=== PATIENT | female | born 1945 | race Caucasian/White ===

== ENCOUNTER → 2017-05-24 09:16 | Outpatient (CLI) | payer MEDICARE, OTHER, MEDICAID, SELFPAY ==
--- NOTE | 2017-05-24 09:30 | RAD_ITS ---
XR Chest 2 Views INDICATION: cough COMPARISON: January 01, 2015 TECHNIQUE: PA and lateral chest x-ray FINDINGS: There are streak like in patchy opacity seen at the right lung base, obscuring the right cardiac border, but also extending posteriorly on the lateral view. The left lung appears clear. The osseous structures are grossly unremarkable. RAD/Chest PA and Lateral IMPRESSION: Findings concerning for right basilar developing infiltrate in the appropriate clinical setting. Follow-up to resolution is recommended. at 1808 Reported and signed by: Barbara Ram MD Electronically Signed: Barbara Ram MD at 17:06 EST Tel , Service support ,
== END ==
PROVIDERS: Family Provider Family Medicine; PCP Family Medicine; Visit Provider Internal Medicine Critical Care Medicine
DX: J44.9 Chronic obstructive pulmonary disease, unspecified (principal); R05 Cough
CPT/HCPCS: 71046; 87633

== ENCOUNTER → 2017-10-05 08:03 | Outpatient (CLI) | payer MEDICARE, OTHER, MEDICAID, SELFPAY ==
--- NOTE | 2017-10-05 10:57 | PFT ---
INTRODUCTION: The patient is a 72-year-old female that presents for pulmonary function testing secondary to a diagnosis of COPD. Respiratory therapy reports good patient effort. Patient was unable to do body plethysmography due to being wheelchair bound. Nitrogen washout was attempted for lung volume measurements. However, after 8 minutes, the patient was unable to washout. Bronchodilators were used during testing. INTERPRETATION: Forced expiration spirometry demonstrates no evidence of a large airways obstructive ventilatory defect. There was no significant response to aerosolized bronchodilators, based upon strict ATS criteria. Spirograms are of good quality and plateau gradually. Lung volumes were measured by determining the functional residual capacity in determining the lung divisions by a vital capacity maneuver (Nitrogen Washout). It should be noted that lung volumes may be underestimated by this technique in the setting of an obstructive ventilatory defect. Unfortunately, after a full 8 minutes, the patient was unable to wash out, making her lung volumes uninterpretable. Diffusing capacity by single breath CO is severely reduced at 34% of predicted. IMPRESSION: The patient spirometry indicated no evidence of an obstructive ventilatory impairment. However, the FVC was reduced, indicating a possible restrictive ventilatory defect. Attempts to obtain lung volumes by nitrogen washout was not successful. Therefore, a restrictive impairment cannot be confirmed. Nevertheless, the patient's diffusing capacity was significantly reduced, which can be seen with underlying pulmonary vascular disorder such as pulmonary hypertension.
== END ==
PROVIDERS: Family Provider Family Medicine; PCP Family Medicine; Visit Provider Nurse Practitioner Acute Care
DX: J44.9 Chronic obstructive pulmonary disease, unspecified (principal)
CPT/HCPCS: 94060; 94727; 94729

== ENCOUNTER → 2017-10-18 15:20 | Outpatient (CLI) | payer MEDICARE, OTHER, MEDICAID, SELFPAY ==
--- NOTE | 2017-10-18 15:30 | RAD_ITS ---
STUDY: X-RAY - THORACIC SPINE REASON FOR EXAM: Female, 72 years old. Back pain TECHNIQUE: 3 view(s) of the thoracic spine were obtained. COMPARISON: None. FINDINGS: Normal kyphosis of the thoracic spine. There is no substantial scoliosis. Normal thoracic vertebrae and endplates. Normal disc space heights. The soft tissue structures are unremarkable. RAD/Thoracic Spine 2 Views IMPRESSION: Normal x-ray examination of the thoracic spine. Electronically Signed: Dany Ramos MD at 22:17 EDT , Service support ,
== END ==
PROVIDERS: Family Provider Family Medicine; PCP Family Medicine; Visit Provider Nurse Practitioner Adult Health
DX: M54.9 Dorsalgia, unspecified (principal)
CPT/HCPCS: 72070

== ENCOUNTER 2021-07-31 21:52 | Emergency (ER) | payer MEDICARE, MEDICAID, SELFPAY ==
[2021-07-31 21:54] VITALS: BP 136/65; PULSE 109; RESP 18; TEMP 35.3; O2SAT 99; BMI 38.2
--- NOTE | 2021-07-31 22:09 | EDS_ITS ---
HPI History of Present Illness Chief Complaint: Coelho C/O Informant: patient Narrative Narrative: Patient presents via EMS for Coelho catheter placement. She has a chronic indwelling Coelho catheter. She states it was clogged tonight and staff at the [facility] tried to change it. They remove the old catheter without difficulty but then were not able to get a new catheter placed. EMS had advised nursing staff that she had a suprapubic catheter but this is not correct information. [facility] Medical History (Updated 07/31/21 @ 23:[address] Nenita Arriaga MD) Abdominal hernia Bladder disorder Cellulitis Chronic kidney disease Chronic venous stasis dermatitis of both lower extremities Constipation Difficulty walking DM II (diabetes mellitus, type II), controlled Edema Fall Generalized edema GERD (gastroesophageal reflux disease) HTN (hypertension) Hyperlipemia Hypothyroid Low back pain Lymphedema Major depressive disorder Multiple sclerosis Muscle weakness Neuromuscular dysfunction of bladder Osteoarthritis Overactive bladder Restless leg syndrome Retention of urine Right leg weakness Shortness of breath Sleep apnea Stricture of artery Super obese Ventral hernia without obstruction or gangrene Home Medications ropinirole 1 mg PO BID 09/11/14 [History Last Taken 10/03/16] atorvastatin 40 mg PO QHS 10/27/14 [History Last Taken 10/03/16] pioglitazone 15 mg PO DAILY 10/27/14 [History Last Taken 10/03/16] docusate sodium 200 mg PO BID 10/03/16 [History Last Taken 10/03/16] glimepiride 1 mg PO DAILY 10/03/16 [History Last Taken 10/03/16] linagliptin 5 mg PO DAILY 10/03/16 [History Last Taken 10/03/16] loperamide 2 mg PO Q4H PRN PRN 10/03/16 [History Last Taken Unknown] magnesium hydroxide 30 ml PO DAILY PRN PRN 10/03/16 [History Last Taken Unknown] polyethylene glycol 3350 17 gm PO DAILY 10/03/16 [History Last Taken 10/03/16] nystatin 1 applic TOPICAL TID #1 bottle 10/07/16 [Rx Last Taken Unknown] tramadol 50 mg PO Q6H PRN PRN #20 tab 10/07/16 [Rx Last Taken Unknown] budesonide 0.5 mg/2 mL suspension for nebulization 0.5 mg INHALATION Q12H 11/07/17 [History Last Taken Unknown] cilostazol 50 mg tablet 50 mg PO ONCE 11/07/17 [History Last Taken Unknown] levothyroxine 200 mcg tablet 200 mcg PO DAILY tab 11/07/17 [History Last Taken Unknown] mirabegron 50 mg tablet,extended release 24 hr 50 mg PO QDAY 11/07/17 [History Last Taken Unknown] potassium chloride 10 mEq tablet,extended release(part/cryst) 10 meq PO QDAY tab 11/07/17 [History Last Taken Unknown] sennosides 8.6 mg-docusate sodium 50 mg tablet 2 tab PO BID tab 11/07/17 [History Last Taken Unknown] acetaminophen 325 mg tablet 650 mg PO Q4H PRN tab 04/25/18 [History Last Taken Unknown] albuterol sulfate 2.5 mg INHALATION Q4H PRN 04/25/18 [History Last Taken Unknown] furosemide 20 mg tablet 20 mg PO DAILY 04/25/18 [History Last Taken Unknown] guaifenesin 100 mg/5 mL oral liquid 200 mg PO Q4H PRN 04/25/18 [History Last Taken Unknown] pectin 2.8 mg lozenges mg MUCOUS MEMBRANE ea 04/25/18 [History Last Taken Unknown] Biofreeze 07/31/21 [History Last Taken Unknown] Pletal 50 mg PO/SL BID 07/31/21 [History Last Taken Unknown] d-mannose 1,000 mg PO/SL BID 07/31/21 [History Last Taken Unknown] dextromethorphan-guaifenesin 10 ml PO Q4H PRN 07/31/21 [History Last Taken Unknown] famotidine 20 mg PO DAILY 07/31/21 [History Last Taken Unknown] levofloxacin 500 mg PO DAILY #3 tab 07/31/21 [Rx Last Taken Unknown] linagliptin [Tradjenta] 5 mg PO DAILY 07/31/21 [History Last Taken Unknown] oxybutynin chloride 15 mg PO PCHS 07/31/21 [History Last Taken Unknown] phenazopyridine [Pyridium] 200 mg PO TID 07/31/21 [History Last Taken Unknown] Allergy/AdvReac Type Severity Reaction Status Date / Time cephalexin [From Keflex] Allergy Anaphylaxis Verified 07/31/21 21:58 sulfamethoxazole Allergy Anaphylaxis Verified 07/31/21 21:58 [From Bactrim] trimethoprim [From Bactrim] Allergy Anaphylaxis Verified 07/31/21 21:58 Family History Mother Crohn disease Sister Myocardial infarction Surgical History history of fatty tumor removal from breast History of total hysterectomy Social History Smoking Status: Former smoker ROS ROS ED Constitutional Constitutional ED: Denies chills or fever(s) Eyes Eyes: Denies change in vision ENT ENT ED: Denies sore throat Cardiovascular Cardiovascular: Denies chest pain Respiratory/Chest Respiratory/Chest: Denies cough or dyspnea Gastrointestinal Gastrointestinal: Denies abdominal pain, nausea or vomiting Musculoskeletal Musculoskeletal: Denies back pain Integumentary Denies rash Neurologic Neurologic: Denies headache(s) Allergic/Immunologic Allergic/Immunologic ED: Denies urticaria EXAM Physical Exam Const Vital Signs: 07/31/21 21:54 Temperature 95.6 F L Temperature Source Temporal Pulse Rate 109 H Respiratory Rate 18 Blood Pressure 136/65 H Blood Pressure Mean 88 Pulse Ox 99 Oxygen Delivery Method Room Air Positive well nourished and well developed General Appearance ED: well developed HEENT Reports moist mucous membranes Eyes PERRL and EOMs intact bilaterally Neck supple Chest Wall inspection of chest normal and palpation of chest normal Resp normal respiratory effort and clear to auscultation bilaterally Cardio regular rate and regular rhythm GI normal to inspection, nondistended, normoactive bowel sounds and non-tender Palpation: soft Neuro oriented x3 Sensorium / Orientation: alert MDM MDM MDM Narrative Medical decision making narrative: Coelho catheter placed by nursing staff. Urinalysis sent. Lab Data Labs: Laboratory Results - last 24 hr 07/31/21 22:30 Urine Color Yellow Urine Clarity Cloudy Urine pH 6.0 Ur Specific [place] 1.020 Urine Protein 500 H Urine Glucose (UA) 50 H Urine Ketones 5 H Urine Occult Blood 250 H Urine Nitrite Positive H Urine Bilirubin 1 H Urine Urobilinogen 4 H Ur Leukocyte Esterase 500 H Urine RBC 50-100 SEEN Urine WBC >100 SEEN Ur Squamous Epith Cells 5-10 SEEN Urine Bacteria 1+ Urine Mucus 0 SEEN Treatment and Re-Evaluation Narrative: Urine was sent from clean, new catheter. This does reveal positive nitrites with greater than 100 white cells and 1+ bacteria. Most recent labs and urine culture from the ECF were sent to us. Creatinine was 0.9. Last urine culture was from October and grew 2 organisms. These are sensitive to Levaquin and she will be treated with that at this time. She had resistance noted to Cipro. She had resistance to nitrofurantoin. She is allergic to Bactrim and Keflex. Discharge Plan Triage Chief Complaint: Coelho C/O ED Provider: Nenita Arriaga Dx/Rx/DC Orders Clinical Impression: UTI (urinary tract infection) Instructions: ED Coelho Catheter, Care, ED CYSTITIS Female Adult Prescriptions: New levofloxacin 500 mg tablet 500 mg PO DAILY Qty: 3 RF: 0 No Action budesonide 0.5 mg/2 mL suspension for nebulization 0.5 mg INHALATION Q12H RF: 0 mirabegron 50 mg tablet extended release 24 hr 50 mg PO QDAY RF: 0 cilostazol 50 mg tablet 50 mg PO ONCE RF: 0 sennosides-docusate sodium [Senna Plus] 8.6-50 mg tablet 2 tab PO BID RF: 0 acetaminophen 325 mg tablet 650 mg PO Q4H PRN (Reason: Pain) RF: 0 pectin 2.8 mg lozenge Mucous Membrane RF: 0 guaifenesin 100 mg/5 mL liquid 200 mg PO Q4H PRNRF: 0 furosemide [Lasix] 20 mg tablet 20 mg PO DAILY RF: 0 albuterol sulfate 2.5 mg /3 mL (0.083 %) solution for nebulization 2.5 mg INHALATION Q4H PRN (Reason: Shortness Of Breath) RF: 0 ropinirole 1 MG tablet 1 mg PO BID RF: 0 levothyroxine 200 mcg tablet 200 mcg PO DAILY RF: 0 pioglitazone 15 MG tablet 15 mg PO DAILY RF: 0 atorvastatin 40 MG tablet 40 mg PO QHS RF: 0 potassium chloride 10 mEq tablet,ER particles/crystals 10 meq PO QDAY RF: 0 loperamide 2 MG capsule 2 mg PO Q4H PRN PRN (Reason: Diarrhea) RF: 0 polyethylene glycol 3350 17 GM packet 17 gm PO DAILY RF: 0 glimepiride 1 MG tablet 1 mg PO DAILY RF: 0 magnesium hydroxide 30 ML suspension 30 ml PO DAILY PRN PRN (Reason: Constipation) RF: 0 docusate sodium 100 MG capsule 200 mg PO BID RF: 0 linagliptin 5 MG tablet 5 mg PO DAILY RF: 0 nystatin 1 APPLIC bottle 1 applic TOPICAL TID Qty: 1 RF: 0 tramadol 50 MG tablet 50 mg PO Q6H PRN PRN (Reason: Pain) Qty: 20 RF: 0 oxybutynin chloride 15 mg tablet extended release 24hr 15 mg PO PCHS RF: 0 dextromethorphan-guaifenesin 10-100 mg/5 mL Liquid 10 ml PO Q4H PRN (Reason: Cough) RF: 0 phenazopyridine [Pyridium] 200 mg Tablet 200 mg PO TID RF: 0 famotidine 20 mg tablet 20 mg PO DAILY RF: 0 Tradjenta 5 mg Tablet 5 mg PO DAILY RF: 0 Biofreeze RF: 0 Pletal 50 mg PO/SL BID RF: 0 d-mannose 500 mg 1,000 mg PO/SL BID RF: 0 Primary Care Provider: Yuval White Referrals: Yuval White MD [Primary Care Provider] - 1 Week Disposition Disposition: Home, Self Care
[2021-07-31 22:40] LABS: Mucous, Urine 0 SEEN /hpf (<or=2+)
[2021-07-31 22:44] LABS: Color, Urine Yellow (Yellow); Glucose, Dipstick 50 mg/dl (Normal); Ketone-Dipstick 5 mg/dl (Negative); Leukocyte Esterase-Dipstick 500 /ul (Negative); Nitrite-Dipstick Positive (Negative); Occult Blood-Urine 250 /ul (Negative); Protein-Dipstick 500 mg/dl (Negative); Urine Clarity Cloudy (Clear); Urine Urobilinogen 4 mg/dl (Normal)
[2021-07-31 23:11] LABS: Urine Bilirubin Dipstick 1 mg/dL (Negative)
[2021-07-31 23:16] LABS: Red Blood Cells-Urine 50-100 SEEN /hpf (0-5); White Blood Cells >100 SEEN /hpf (0-5)
[2021-07-31 23:17] LABS: Bacteria 1+ /hpf (None Seen); Squamous Epithelial Cells - UA 5-10 SEEN /hpf (5-10)
--- NOTE | 2021-07-31 23:25 | ED.RN ---
Dr. Arriaga requesting RN to called [facility] for patients most recent labs. Nurse at [facility] faxing to ED.
[2021-08-01] MEDS: levoFLOXacin 500 MG Tablet PO
--- NOTE | 2021-08-01 00:12 | ED.RN ---
RN called report to Aysha at [facility]. Nurse updated on ETA, fragoso and abx rx. Nurse has no further questions at this time.
== END 2021-08-01 00:23 | disposition home or self-care (01) ==
PROVIDERS: Emergency Provider Emergency Medicine; PCP Family Medicine; Visit Provider Emergency Medicine
DX: N39.0 Urinary tract infection, site not specified (principal); G35 Multiple sclerosis; E11.22 Type 2 diabetes mellitus with diabetic chronic kidney disease; E78.5 Hyperlipidemia, unspecified; Z87.891 Personal history of nicotine dependence; N18.9 Chronic kidney disease, unspecified; I12.9 Hypertensive chronic kidney disease with stage 1 through stage 4 chronic kidney disease, or unspecified chronic kidney disease; Z90.710 Acquired absence of both cervix and uterus; E03.9 Hypothyroidism, unspecified
CPT/HCPCS: 51702; 81001; 87077; 87086; 87088; 87186; 99285